=== PATIENT | female | born 1935 | race Caucasian/White ===

== ENCOUNTER 2016-09-04 15:52 | Outpatient (CLI) | payer MEDICARE, BC | END 2016-09-04 15:53 | disposition home or self-care (01) | LOC: HPCALD 15:52 | PROVIDERS: ATTEND Family Medicine | DX: R39.9 Unspecified symptoms and signs involving the genitourinary system (principal) | CPT/HCPCS: 87086 ==

== ENCOUNTER 2017-11-10 15:05 | Emergency (ER) | payer BC, MEDICARE ==
--- NOTE | 2017-11-10 19:09 | RAD ---
LEFT HIP TWO VIEWS: 11/10/17 No fracture, joint space narrowing, or acute bony change was seen. Arthritic changes are truly minima l for age. The articular surfaces are smooth. IMPRESSION: No acute finding. POS: HOME
== END 2017-11-10 15:57 | disposition home or self-care (01) ==
LOC: BURERS 15:05
DX: M25.552 Pain in left hip (principal); F03.90 Unspecified dementia, unspecified severity, without behavioral disturbance, psychotic disturbance, mood disturbance, and anxiety; Z79.899 Other long term (current) drug therapy

== ENCOUNTER 2018-02-12 13:37 | Emergency (ER) | payer MEDICARE | END 2018-02-12 13:58 | disposition home or self-care (01) | LOC: BURERS 13:37 | DX: K04.7 Periapical abscess without sinus (principal); K02.9 Dental caries, unspecified; F03.90 Unspecified dementia, unspecified severity, without behavioral disturbance, psychotic disturbance, mood disturbance, and anxiety; I48.91 Unspecified atrial fibrillation; I25.2 Old myocardial infarction; I11.0 Hypertensive heart disease with heart failure; I50.9 Heart failure, unspecified; K21.9 Gastro-esophageal reflux disease without esophagitis; E78.00 Pure hypercholesterolemia, unspecified; I05.9 Rheumatic mitral valve disease, unspecified | CPT/HCPCS: 99283 ==

== ENCOUNTER 2019-02-25 15:52 | Emergency (ER) | payer MEDICARE ==
[2019-02-25] MEDS ORDERED: Silver Nitrate Application 1 EACH ONE ×2 (16:17→16:21)
== END 2019-02-25 16:45 | disposition home or self-care (01) ==
LOC: BURERS 15:52
DX: S61.213A Laceration without foreign body of left middle finger without damage to nail, initial encounter (principal); S61.214A Laceration without foreign body of right ring finger without damage to nail, initial encounter; I10 Essential (primary) hypertension; I48.91 Unspecified atrial fibrillation; I25.2 Old myocardial infarction; I11.0 Hypertensive heart disease with heart failure; I50.9 Heart failure, unspecified; K21.9 Gastro-esophageal reflux disease without esophagitis; N17.9 Acute kidney failure, unspecified; E78.00 Pure hypercholesterolemia, unspecified; F03.90 Unspecified dementia, unspecified severity, without behavioral disturbance, psychotic disturbance, mood disturbance, and anxiety; W01.0XXA Fall on same level from slipping, tripping and stumbling without subsequent striking against object, initial encounter
CPT/HCPCS: 12001

== ENCOUNTER 2019-04-22 13:43 | Emergency (ER) | payer MEDICARE ==
--- NOTE | 2019-04-22 14:19 | RAD ---
Radiograph right hip 2 views: DATE: 04/22/2019 Time: There are 6:00 PM HISTORY: 84-year-old female with persistent posttraumatic acute right hip pain after fall 2 days ago. COMPARISON: None FINDINGS: There is a mildly displaced fracture at the mid-proximal portion of the greater trochanter. No fractu re of the lesser trochanter, femoral head, or femoral neck identified. No dislocation. IMPRESSION: Acute, traumatic, mildly displaced fracture of greater trochanter of right proximal femur.
[2019-04-22] MEDS ORDERED: Acetaminophen/Codeine 30-300mg Tablet ONE (14:26)
== END 2019-04-22 14:30 | disposition home or self-care (01) ==
LOC: BURERS 13:43
DX: S72.111A Displaced fracture of greater trochanter of right femur, initial encounter for closed fracture (principal); I50.9 Heart failure, unspecified; I25.2 Old myocardial infarction; I48.91 Unspecified atrial fibrillation; E78.5 Hyperlipidemia, unspecified; E78.00 Pure hypercholesterolemia, unspecified; E78.1 Pure hyperglyceridemia; F03.90 Unspecified dementia, unspecified severity, without behavioral disturbance, psychotic disturbance, mood disturbance, and anxiety; Z79.899 Other long term (current) drug therapy; Z79.891 Long term (current) use of opiate analgesic; W19.XXXA Unspecified fall, initial encounter

== ENCOUNTER 2019-05-11 14:00 | Emergency (ER) | payer MEDICARE ==
[2019-05-11 14:56] LABS: #Basophils 0.1 thou/uL (0.0-0.2); #Eosinphils 0.4 thou/uL (0.0-0.7); #Lymphocytes 1.1 thou/uL (1.20-3.40); #Monocytes 0.7 thou/uL (0.11-0.59); #Neutrophils 4.8 thou/uL (1.40-6.50); %Basophils 1.4 % (0.0-1.0); %Eosinophils 5.2 % (0.0-10.0); %Lymphocytes 15.4 % (21.0-51.0); %Monocytes 9.5 % (0.0-10.0); %Neutrophils 68.6 % (42.0-75.0); Hemoglobin 11.2 g/dL (12.0-16.0); Mean Corpuscular Hemoglobin 32.4 pg (27.0-31.0); Mean Platelet Volume 6.3 fL (7.4-10.4); Platelet Count 272 thou/uL (130-400); RBC Distribution Width 17.4 % (11.5-14.5); Red Blood Cell (RBC) Count 3.48 mill/uL (4.20-5.40)
[2019-05-11 15:10] LABS: ALT (SGPT) 9 U/L (8-55); AST (SGOT) 12 U/L (5-34); Albumin 3.6 g/dL (3.4-4.8); Alkaline Phosphatase 168 U/L (40-110); Anion Gap 14 mmol/L (10-20); BUN (Urea Nitrogen) 21 mg/dL (9.8-20.1); Bilirubin, Total 1.1 mg/dL (0.2-1.2); Calc. Creatinine Clearance 0 mL/min (70-130); Carbon Dioxide 24 mmol/L (23-31); Chloride 104 mmol/L (98-107); Estimated GFR-MDRD 58; Glucose 91 mg/dL (83-110); Potassium 4.1 mmol/L (3.5-5.1); Protein, Total 6.6 g/dL (6.0-8.3); Sodium 138 mmol/L (136-145)
--- NOTE | 2019-05-11 15:12 | RAD ---
RADIOGRAPH CHEST 1 VIEW: Date: 05/11/2019 Time: 1445 HOURS HISTORY: 84-year-old female with altered mental status. Concern for aspiration. COMPARISON: None available. FINDINGS: Except for a small patch of poorly aerated, infiltrated left upper lobe, the rest of the left hemitho racic cavity is totally, densely opacified. There is a left subclavian pacemaker. There is cardiomega ly. The right lung is relatively clear. No pneumothorax. Right lateral costophrenic angle is sharp. IMPRESSION: 1. Almost total opacification of the left hemithoracic cavity by a large left pleural effusion and u nderlying consolidation or collapse of almost the entire left lung. 2. Cardiomegaly. 3. Pacemaker. JN [] POS: [facility]
[2019-05-11 16:45] LABS: Bilirubin Small (Negative); Blood, Urine Negative (Negative); Clarity Slightly Cloudy (Clear); Glucose, Urine (Dipstick) Negative (Negative); Leukocyte Trace (Negative); Nitrite Negative (Negative); Protein, Urine (Dipstick) Negative (Neg-Trace)
[2019-05-11 16:46] LABS: Bacteria/HPF 2+ HPF (None Seen); Broad Cast None Seen LPF (None Seen); Cellular Cast None Seen LPF (None Seen); Epithelial Cast None Seen LPF (None Seen); Fatty Cast None Seen LPF (None Seen); Mucous/LPF None Seen LPF (<2+); Oval Fat Bodies/HPF None Seen HPF (None Seen); RBC/HPF 0-3 HPF (0-3); Red Blood Cell Cast None Seen LPF (None Seen); Renal Epithelial None Seen HPF (None Seen); Sperm/HPF None Seen HPF (None Seen); Squamous Epithelial None Seen HPF (0-3); Transitional Epithelial None Seen HPF (None Seen); Trichomonas/HPF None Seen HPF (None Seen); WBC/HPF 0-3 HPF (0-3); Waxy Cast None Seen LPF (None Seen); White Blood Cell Cast None Seen LPF (None Seen); Yeast-Budding None Seen HPF (None Seen); Yeast-Hyphae None Seen HPF (None Seen)
[2019-05-11 16:47] LABS: Calcium Oxalate Crystals None Seen HPF (None Seen); Other Casts None Seen LPF (None Seen); Triple Phosphate Crystal None Seen HPF (None Seen); Unclassified Crystals None Seen HPF (None Seen)
== END 2019-05-11 17:18 | disposition short-term general hospital (02) ==
LOC: BURERS 14:00
DX: J90 Pleural effusion, not elsewhere classified (principal); R53.1 Weakness; E78.5 Hyperlipidemia, unspecified; E78.00 Pure hypercholesterolemia, unspecified; E78.1 Pure hyperglyceridemia; I48.91 Unspecified atrial fibrillation; I25.2 Old myocardial infarction; I50.9 Heart failure, unspecified; Z79.891 Long term (current) use of opiate analgesic; Z79.899 Other long term (current) drug therapy
CPT/HCPCS: 51701; 71045; 80053; 81003; 81015; 83880; 84484; 85025; 93005; 96360; A4353